=== PATIENT | male | born 1985 | race Caucasian/White ===

== ENCOUNTER 2017-10-11 14:30 | Inpatient (IN) ==
[2017-10-11 16:13] LABS: Alanine Aminotransferase 16 U/L (16-61); Albumin 4.1 G/DL (3.4-5.0); Alkaline Phosphatase 59 U/L (45-117); Aspartate Amino Transferase 19 U/L (0-37); Blood Urea Nitrogen 17 MG/DL (7-18); Calcium 9.9 MG/DL (8.5-10.1); Glucose 109 MG/DL (74-106); Osmolality,Calculated 268.4 MOS/KG (273-304); Potassium 3.8 MMOL/L (3.5-5.1); Sodium 133 MMOL/L (136-145); Total Protein 8.8 G/DL (6.4-8.3)
[2017-10-11 16:16] LABS: Basophils % 0.3 % (0.0-0.8); Eosinophils % 0.1 % (0.00-10.9); Hematocrit 48.2 VOL% (42.0-52.0); Immature Granulocytes % 0.5 %; Immature Granulocytes Absolute 0.06 #; Lymphocytes # 2.3 10*3/uL (1.4-4.0); Lymphocytes % 20.8 % (21.2-54.2); Mean Corpuscular HGB Conc 36.1 GM/DL (32-36); Mean Corpuscular Hemoglobin 33 PG (27-34); Mean Corpuscular Volume 91.8 FL (87-102); Mean Platelet Volume 10.8 FL (9.6-12.0); Monocytes # 0.8 10*3/uL (0.11-0.8); Monocytes % 6.8 % (1.7-12.7); Neutrophils # 8.1 10*3/uL (1.4-7.4); Neutrophils % 71.5 % (38.7-73.9); Platelet Count 237 T/CUMM (130-400); Red Blood Count 5.25 MC/CUMM (3.8-5.5); Red Cell Distribution Width 12.7 % (9.3-17.3); White Blood Count 11.3 T/CUMM (4-12)
[2017-10-11 16:17] LABS: Hemoglobin 17.4 GM/DL (14.0-18.0)
[2017-10-11 16:33] LABS: Apearance,Urine CLEAR (Clear); Bacteria,Urine Occasional /HPF (Few); Bilirubin,Urine Negative (Negative); Blood, Urine Moderate mg/dL (Negative); Glucose,Urine (UA) Negative (Negative); Hyaline Casts,Urine 6 /LPF (0-3); Ketones,Urine Negative (Negative); Mucus,Urine Occasional /LPF (Occasional); Nitrite,Urine Negative (Negative); Protein,Urine 100 MG/DL; RBC,Urine <1 /HPF (0-4); Urine Color Yellow (Yellow); Urine Specific Gravity 1.013 (1.001-1.035); Urine Urobilinogen < 2.0 EU/DL (0.2-1.0); WBC,Urine 2 /HPF (0-6)
[2017-10-11 16:46] LABS: Barbiturates Screen,Urine Negative (Negative); Benzodiazepines Screen,Urine Positive (Negative); Cannabinoid Screen,Urine Negative (Negative); Opiate Screen,Urine Positive (Negative); Phencyclidine Screen,Urine Negative (Negative)
[2017-10-11] MEDS ORDERED: SODIUM CHLORIDE 0.9% 1,000 ML IV STA (19:35)
[2017-10-11] MEDS ORDERED: oxyCODONE/ACETAMINOPHEN 5-325 MG TABLET PO STA ×2 (20:14→20:35)
[2017-10-11] MEDS ORDERED: busPIRone 5 MG TABLET PO SCH (22:27)
[2017-10-11] MEDS: busPIRone 5 MG TABLET PO SCH (23:21)
[2017-10-11] MEDS: ALPRAZolam 0.5 MG TABLET PO SCH (23:21)
[2017-10-11] MEDS: MORPHINE ER 30 MG TABLET PO SCH (23:22)
[2017-10-11] MEDS: ENOXAPARIN 40 MG/0.4 ML SYRINGE SUBCUT SCH (23:23)
[2017-10-11] MEDS: FENOFIBRATE 160 MG TABLET PO SCH (23:55)
[2017-10-12 06:40] LABS: Calcium 8.7 MG/DL (8.5-10.1); Osmolality,Calculated 284.1 MOS/KG (273-304); Potassium 3.3 MMOL/L (3.5-5.1)
[2017-10-12] MEDS: oxyCODONE/ACETAMINOPHEN 5-325 MG TABLET PO SCH ×2 (06:47→16:27)
[2017-10-12] MEDS ORDERED: PANTOPRAZOLE 40 MG TABLET PO SCH (09:00)
[2017-10-12] MEDS: DILTIAZEM CD 120 MG CAPSULE PO SCH (09:03)
[2017-10-12] MEDS: MORPHINE ER 30 MG TABLET PO SCH ×2 (09:03→20:27)
[2017-10-12] MEDS: PANTOPRAZOLE 40 MG TABLET PO SCH (09:04)
[2017-10-12] MEDS: ASPIRIN EC 325 MG TABLET PO SCH (09:04)
[2017-10-12] MEDS: METOPROLOL SUCCINATE XL 100 MG TABLET PO SCH (09:04)
[2017-10-12] MEDS: ALPRAZolam 0.5 MG TABLET PO SCH ×2 (09:04→20:28)
[2017-10-12] MEDS ORDERED: POTASSIUM CHLORIDE RIDER 10 MEQ in PREMIX 1 EACH IV PRN (11:21)
[2017-10-12] MEDS: FENOFIBRATE 160 MG TABLET PO SCH (20:27)
[2017-10-12] MEDS: busPIRone 5 MG TABLET PO SCH (20:28)
[2017-10-12] MEDS: ENOXAPARIN 40 MG/0.4 ML SYRINGE SUBCUT SCH (20:30)
[2017-10-13] MEDS: oxyCODONE/ACETAMINOPHEN 5-325 MG TABLET PO SCH ×3 (00:24→11:51)
[2017-10-13 05:44] LABS: Basophils % 0.4 % (0.0-0.8); Eosinophils # 0.2 10*3/uL (0.0-0.87); Hematocrit 40.2 VOL% (42.0-52.0); Hemoglobin 14.2 GM/DL (14.0-18.0); Immature Granulocytes % 0.2 %; Immature Granulocytes Absolute 0.02 #; Lymphocytes # 4.9 10*3/uL (1.4-4.0); Lymphocytes % 58.6 % (21.2-54.2); Mean Corpuscular HGB Conc 35.3 GM/DL (32-36); Mean Corpuscular Hemoglobin 33 PG (27-34); Mean Corpuscular Volume 93.1 FL (87-102); Mean Platelet Volume 10.9 FL (9.6-12.0); Monocytes # 0.8 10*3/uL (0.11-0.8); Neutrophils # 2.4 10*3/uL (1.4-7.4); Neutrophils % 28.8 % (38.7-73.9); Platelet Count 200 T/CUMM (130-400); Red Blood Count 4.32 MC/CUMM (3.8-5.5); White Blood Count 8.3 T/CUMM (4-12)
[2017-10-13 06:22] LABS: Eosinophils 6 % (0-10); Hypochromasia 1+; Lymphocytes 58 % (20-55); Platelet Estimate Normal; Segmented Neutrophils 30 % (50-85); Total Cells Counted 100
[2017-10-13 06:23] LABS: Atypical Lymphocytes Few; Calcium 8.4 MG/DL (8.5-10.1); Osmolality,Calculated 288.1 MOS/KG (273-304); Potassium 3.3 MMOL/L (3.5-5.1)
[2017-10-13] MEDS ORDERED: POTASSIUM CHLORIDE 20 MEQ TABLET PO ONE (08:15)
[2017-10-13] MEDS: DILTIAZEM CD 120 MG CAPSULE PO SCH (08:50)
[2017-10-13] MEDS: METOPROLOL SUCCINATE XL 100 MG TABLET PO SCH (08:51)
[2017-10-13] MEDS: ASPIRIN EC 325 MG TABLET PO SCH (08:51)
[2017-10-13] MEDS: MORPHINE ER 30 MG TABLET PO SCH (08:52)
[2017-10-13] MEDS: PANTOPRAZOLE 40 MG TABLET PO SCH (08:54)
[2017-10-13] MEDS: ALPRAZolam 0.5 MG TABLET PO SCH (08:54)
[2017-10-13 12:15] VITALS: BP 126/76
== END 2017-10-13 12:45 | disposition home or self-care (01) | DRG 101 ==
LOC: N.ED 14:30 → SUATTDRO 20:53 → N.EDINP 20:53 → N.4E 23:00
PROVIDERS: ADMIT Internal Medicine Infectious Disease; ATTEND Internal Medicine Infectious Disease